=== PATIENT | female | born 1935 | race Caucasian/White ===

== ENCOUNTER → 2018-05-17 15:20 | Outpatient (CLI) | payer MEDICARE, SELFPAY ==
--- NOTE | 2018-05-17 | DI.RAD.S_ITS ---
PROCEDURE: XR CERVICAL SPINE 4V OR 5V INDICATIONS: CERVICALGIA TECHNIQUE: 5 views of the cervical spine acquired. COMPARISON: None. FINDINGS: Bones: No fractures or dislocations to the T4 level. Grade 1 anterolisthesis of C7 on T1 is seen. Degenerative endplate changes are noted at C4-5, C5-6 and C6-7 levels. There is suggestion of mild bilateral neural foramina narrowing at C5-6 and C6-7 levels seen on the oblique images. Soft tissues: No prevertebral soft tissue swelling. IMPRESSION: Grade 1 anterolisthesis of C7 on T1. No acute compression fracture. 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 Dictated by: Agustín Ibarra M.D. on 05/17/2018 at 16:01 Approved by: Agustín Ibarra M.D. on 05/17/2018 at 16:03
== END ==
PROVIDERS: Family Provider Internal Medicine; PCP Internal Medicine; Visit Provider Student in an Organized Health Care Education/Training Program
DX: M50.321 Other cervical disc degeneration at C4-C5 level (principal); M43.12 Spondylolisthesis, cervical region
CPT/HCPCS: 72050

== ENCOUNTER → 2018-08-12 12:03 | Outpatient (CLI) | payer MEDICARE, SELFPAY ==
[2018-08-12 12:51] LABS: Add Manual Diff / Slide Review NO; Basophils Percent Auto 0.4 % (0-2); Eosinophils Percent Auto 1.9 % (2-4); Hematocrit 39.9 % (36-46); Hemoglobin 13.4 g/dL (12.0-16.0); Lymphocytes Percent Auto 24.1 % (25-40); Mean Corpuscular HGB Conc 33.5 % (30-36); Mean Corpuscular Hemoglobin 30.5 PG (26-34); Mean Corpuscular Volume 91.2 fL (80-100); Monocytes Percent Auto 6.6 % (3-14); Neutrophils Absolute Auto 6400 /uL (3000-5900); Platelet Count 251 X10^3/uL (150-400); Red Blood Cell Count 4.38 X10^6/uL (4.0-5.2); Red Cell Distribution Width 12.8 % (11.6-14.8); White Blood Cell Count 9.6 X10^3/uL (4.5-11.0)
[2018-08-12 13:25] LABS: Alanine Aminotransferase 31 IU/L (9-52); Albumin 4.3 g/dL (3.5-5.0); Albumin Globulin Ratio 1.7 (1.0-2.8); Alkaline Phosphatase 92 U/L (38-126); Aspartate Aminotransferase 25 IU/L (14-36); BUN Creatinine Ratio 27.1 (6-22); Bilirubin Total 0.3 mg/dL (0.2-1.3); Blood Urea Nitrogen 19 mg/dL (7-17); Calcium 9.9 mg/dL (8.4-10.2); Carbon Dioxide 35 mmol/L (22-32); Chloride 94 mmol/L (98-107); Estimated Glomerular Filt Rate > 60.0 mL/min (>60); Globulin 2.6 g/dL (1.7-4.1); Glucose 92 mg/dL (80-110); HEMOLYSIS < 15 (0-50); Potassium 4.2 mmol/L (3.4-5.1); Sodium 139 mmol/L (137-145); Total Protein 6.9 g/dL (6.3-8.2)
[2018-08-12 13:42] LABS: Free T4, Direct Thyroxine 1.29 ng/dL (0.78-2.19)
[2018-08-12 13:56] LABS: Thyroid Stimulating Hormone 1.26 uIU/mL (0.47-4.68)
== END ==
PROVIDERS: PCP Internal Medicine; Visit Provider Internal Medicine
DX: I48.0 Paroxysmal atrial fibrillation (principal)
CPT/HCPCS: 36415; 80053; 83735; 84439; 84443; 85025

== ENCOUNTER 2018-11-26 19:18 | Emergency (ER) | payer MEDICARE, SELFPAY ==
[2018-11-26 19:24] VITALS: BP 147/78; PULSE 61; RESP 18; TEMP 36.7; O2SAT 98
[2018-11-26 21:12] LABS: Add Manual Diff / Slide Review NO; Basophils Absolute Auto 100 /uL (0-100); Basophils Percent Auto 0.7 % (0-2); Eosinophils Absolute Auto 200 /uL (0-450); Eosinophils Percent Auto 1.1 % (2-4); Hematocrit 41.2 % (36-46); Hemoglobin 13.7 g/dL (12.0-16.0); Lymphocytes Absolute Auto 2400 /uL (1100-4500); Lymphocytes Percent Auto 15.9 % (25-40); Mean Corpuscular HGB Conc 33.1 % (30-36); Mean Corpuscular Hemoglobin 30.1 PG (26-34); Monocytes Absolute Auto 1300 /uL (0-900); Monocytes Percent Auto 8.5 % (3-14); Neutrophils Absolute Auto 11400 /uL (1500-7000); Neutrophils Percent Auto 73.8 % (50-75); Platelet Count 240 X10^3/uL (150-400); Red Blood Cell Count 4.53 X10^6/uL (4.0-5.2); Red Cell Distribution Width 13.5 % (11.6-14.8); White Blood Cell Count 15.4 X10^3/uL (4.5-11.0)
[2018-11-26 21:27] LABS: Alanine Aminotransferase 25 IU/L (9-52); Albumin 4.6 g/dL (3.5-5.0); Albumin Globulin Ratio 1.4 (1.0-2.8); Alkaline Phosphatase 95 U/L (38-126); Aspartate Aminotransferase 27 IU/L (14-36); BUN Creatinine Ratio 41.7 (6-22); Bilirubin Total 0.5 mg/dL (0.2-1.3); Blood Urea Nitrogen 25 mg/dL (7-17); Calcium 9.7 mg/dL (8.4-10.2); Carbon Dioxide 31 mmol/L (22-32); Chloride 94 mmol/L (98-107); Estimated Glomerular Filt Rate > 60.0 mL/min (>60); Globulin 3.3 g/dL (1.7-4.1); Glucose 106 mg/dL (80-110); HEMOLYSIS 16 (0-50); Lipase 118 U/L (23-300); Potassium 3.5 mmol/L (3.4-5.1); Sodium 135 mmol/L (137-145); Total Protein 7.9 g/dL (6.3-8.2)
[2018-11-26 21:41] LABS: Bacteria Urine None Seen; WBC Urine None Seen (0-5/HPF)
--- NOTE | 2018-11-26 21:53 | ED.ABDPAIN ---
HPI - Abdominal Pain General Chief Complaint: Abdominal Pain Stated Complaint: epigastric pain Time Seen by Provider: 11/26/18 21:53 Source: patient Mode of arrival: ambulatory Limitations: no limitations History of Present Illness HPI narrative: Patient is an 83-year-old female reports that earlier today she had a gradual onset of epigastric pain. She states that she has never had these symptoms before. Has not tried anything for the symptoms. Has no other associated symptoms. States that it did not seem to change with urination or bowel movements. Has not had any nausea or vomiting. Related Data Home Medications Medication Instructions Recorded Confirmed CHOLECALCIFEROL (VITAMIN D3) 400 unit PO QDAY #0 12/16/16 (Vitamin D3) [FLAXSEED OIL] Q DAY #0 12/16/16 [TUMERIC] Q DAY #0 12/16/16 aspirin 650 mg PO QDAY #0 12/16/16 calcium carbonate-vitamin D3 1 tab PO Q DAY #0 12/16/16 [Oyster Shell Calcium-Vit D3] cyanocobalamin (vitamin B-12) 500 mcg PO QDAY #0 12/16/16 [Vitamin B-12] folic acid 1 mg PO QDAY #0 12/16/16 glucosamine sulfate-msm 1 tab EVERY OTHER DAY #0 03/13/17 metoprolol tartrate 25 mg PO Q DAY #0 09/15/17 Previous Rx's Medication Instructions Recorded ranitidine HCl [Zantac] 150 mg PO DAILY #30 tab 11/27/18 Allergies Allergy/AdvReac Type Severity Reaction Status Date / Time No Known Drug Allergies Allergy Verified 11/26/18 19:24 Review of Systems Constitutional Denies chills, Denies fever(s) and Denies headache(s) ENT Ears, Nose, Mouth, and Throat: Denies headache(s) Cardiovascular Denies chest pain, Denies chest pain with activity, Denies rapid heart rate, Denies leg edema, Denies palpitations and Denies dyspnea Respiratory Denies dyspnea Gastrointestinal Gastrointestinal: Reports abdominal pain, Denies change in stool character, Denies dyspepsia, Denies diarrhea, Denies nausea and Denies vomiting Genitourinary Denies dysuria Musculoskeletal Denies myalgias and Denies arthralgias Integumentary/Breasts Denies rash Neurologic Denies behavioral changes and Denies headache(s) Psychiatric Denies behavioral changes Endocrine Denies palpitations Hematologic/Lymphatic Denies easy bleeding and Denies easy bruising Allergic/Immunologic Denies urticaria PFSH Surgical History History of permanent cardiac pacemaker placement (Acute) Social History Smoking Status: Never smoker Social History Smoking Status: Never smoker Exam Initial Vital Signs Initial Vital Signs: Vital Signs Temperature 98.1 F 11/26/18 19:24 Pulse Rate 61 11/26/18 19:24 Respiratory Rate 18 11/26/18 19:24 Blood Pressure 147/78 H 11/26/18 19:24 Pulse Oximetry 98 11/26/18 19:24 Const General: cooperative, healthy appearing, comfortable, well developed, well groomed and No acute distress Orientation: alert, awake and oriented x3 Resp Effort & Inspection: normal respiratory effort Auscultation: clear to auscultation bilaterally Cardio Rate: regular rate Rhythm: regular rhythm Pulses: radial pulses present GI Inspection: non-distended Palpation: soft, No firm and tender (Some tenderness to palpation epigastric region no right upper quadrant tend) Skin Lesions: no lesions Rashes: no rashes Neuro General: alert, awake and oriented x3 Extrem General: normal to inspection and capillary refill normal Psych Appearance: grossly normal and well kempt Scores GCS Herman coma scale eye opening: Spontaneous Herman coma scale verbal response: Orientated [place] coma scale motor response: Obey commands Herman coma scale total score: 15 Course Orders Ordered: ED Orders 11/26/18 21:00 Complete Blood Count AUTO DIFF Stat Comprehensive Metabolic Panel Stat Lipase Stat Troponin I Stat 11/26/18 22:31 CT abdomen pelvis w con Stat Discontinued Medications Al Hydrox/Mg Hydrox/Simethicone 20 ml/ Lidocaine HCl 15 ml 0 ml PO NOW ONE Stop: 11/26/18 22:18 Last Admin: 11/26/18 23:03 Dose: 35 ml Vital Signs - 8 hr 11/27/18 00:33 Temperature 97.8 F Pulse Rate 66 Respiratory Rate 18 Blood Pressure [Right Arm] 121/71 Pulse Oximetry 95 MDM - Abdominal Pain Lab Data Attestation: I reviewed the patient's lab results. Result diagrams: 11/26/18 21:00 11/26/18 21:00 Lab Results 11/26/18 11/26/18 11/26/18 Range/Units 21:00 21:00 21:00 WBC 15.4 H (4.5-11.0) X10^3/uL RBC 4.53 (4.0-5.2) X10^6/uL Hgb 13.7 (12.0-16.0) g/dL Hct 41.2 (36-46) % MCV 91.0 (80-100) fL MCH 30.1 (26-34) PG MCHC 33.1 (30-36) % RDW 13.5 (11.6-14.8) % Plt Count 240 (150-400) X10^3/uL Neut % (Auto) 73.8 (50-75) % Lymph % (Auto) 15.9 L (25-40) % [place] % (Auto) 8.5 (3-14) % Eos % (Auto) 1.1 L (2-4) % Baso % (Auto) 0.7 (0-2) % Neut # (Auto) 95270 H (5762-1450) /uL Lymph # (Auto) 2400 (5943-0296) /uL [place] # (Auto) 1300 H (0-900) /uL Eos # (Auto) 200 (0-450) /uL Baso # (Auto) 100 (0-100) /uL Sodium 135 L (137-145) mmol/L Potassium 3.5 (3.4-5.1) mmol/L Chloride 94 L (98-107) mmol/L Carbon Dioxide 31 (22-32) mmol/L BUN 25 H (7-17) mg/dL Creatinine 0.60 (0.52-1.04) mg/dL Estimated GFR > 60.0 (>60) mL/min BUN/Creatinine Ratio 41.7 H (6-22) Glucose 106 (80-110) mg/dL Calcium 9.7 (8.4-10.2) mg/dL Total Bilirubin 0.5 (0.2-1.3) mg/dL AST 27 (14-36) IU/L ALT 25 (9-52) IU/L Alkaline Phosphatase 95 (38-126) U/L Troponin I < 0.012 (0.01-0.034) ng/mL Total Protein 7.9 (6.3-8.2) g/dL Albumin 4.6 (3.5-5.0) g/dL Globulin 3.3 (1.7-4.1) g/dL Albumin/Globulin Ratio 1.4 (1.0-2.8) Lipase 118 (23-300) U/L Urine Color Urine Appearance Urine pH (4.5-8.0) Ur Specific [place] (1.000-1.035) Urine Protein (Negative) Urine Glucose (UA) (Negative) g/dL Urine Ketones (NEGATIVE) Urine Occult Blood (Negative) Urine Nitrate (Negative) Urine Bilirubin (NEGATIVE) Urine Urobilinogen (0.2) E.U./dL Ur Leukocyte Esterase (NEGATIVE) Urine RBC (0-5/HPF) Urine WBC (0-5/HPF) Urine Bacteria (None) Ur Culture Indicated? 11/26/18 Range/Units Unknown WBC (4.5-11.0) X10^3/uL RBC (4.0-5.2) X10^6/uL Hgb (12.0-16.0) g/dL Hct (36-46) % MCV (80-100) fL MCH (26-34) PG MCHC (30-36) % RDW (11.6-14.8) % Plt Count (150-400) X10^3/uL Neut % (Auto) (50-75) % Lymph % (Auto) (25-40) % [place] % (Auto) (3-14) % Eos % (Auto) (2-4) % Baso % (Auto) (0-2) % Neut # (Auto) (7825-7101) /uL Lymph # (Auto) (6331-6744) /uL [place] # (Auto) (0-900) /uL Eos # (Auto) (0-450) /uL Baso # (Auto) (0-100) /uL Sodium (137-145) mmol/L Potassium (3.4-5.1) mmol/L Chloride (98-107) mmol/L Carbon Dioxide (22-32) mmol/L BUN (7-17) mg/dL Creatinine (0.52-1.04) mg/dL Estimated GFR (>60) mL/min BUN/Creatinine Ratio (6-22) Glucose (80-110) mg/dL Calcium (8.4-10.2) mg/dL Total Bilirubin (0.2-1.3) mg/dL AST (14-36) IU/L ALT (9-52) IU/L Alkaline Phosphatase (38-126) U/L Troponin I (0.01-0.034) ng/mL Total Protein (6.3-8.2) g/dL Albumin (3.5-5.0) g/dL Globulin (1.7-4.1) g/dL Albumin/Globulin Ratio (1.0-2.8) Lipase (23-300) U/L Urine Color Yellow Urine Appearance Clear Urine pH 6.5 (4.5-8.0) Ur Specific [place] 1.010 (1.000-1.035) Urine Protein Negative (Negative) Urine Glucose (UA) Negative (Negative) g/dL Urine Ketones Negative (NEGATIVE) Urine Occult Blood 1+ H (Negative) Urine Nitrate Negative (Negative) Urine Bilirubin Negative (NEGATIVE) Urine Urobilinogen 0.2 (0.2) E.U./dL Ur Leukocyte Esterase Negative (NEGATIVE) Urine RBC 0-1/hpf (0-5/HPF) Urine WBC None seen (0-5/HPF) Urine Bacteria None seen (None) Ur Culture Indicated? Cult not indicated Imaging Data CT scan - abdomen: Radiologist's impression: Moderate stool and gas throughout the colon. No free air or fluid. Hemangiomas involving the left lobe of the liver. Dilated common bile duct and pancreatic duct. Ampullary region mass is not excluded, not demonstrated. ECG Data Attestation: I personally reviewed and interpreted this ECG as follows: Prior ECG tracings: not available for review Interpretation: Sinus rhythm Left axis deviation Left bundle branch block Ventricular rate is 63 Normal QRS and QTC MDM Narrative Medical decision making narrative: Patient has a relatively benign abdominal exam. LFTs and lipase are unremarkable. CT scan of the abdomen shows no definite pathology. She does have leukocytosis however no signs of infection. She is afebrile. Her troponin was negative greater than 6 hr after the onset of her constant symptoms. Low suspicion for ACS. She was given a GI cocktail and she states this only minimally improved her symptoms. She does have the reports of a dilated common bile duct however no stones on the CT scan. She has no right upper quadrant tenderness. Has no elevation in her LFTs or lipase. Will start the patient on Zantac to see if this does not improve her symptoms. Informed her to contact her primary doctor on Thursday to discuss further evaluation and treatment. She was given return precautions. If she returns prior to her follow-up with primary doctor would recommend ordering a right upper quadrant ultrasound to further evaluate the dilated common bile duct. Discharge Plan Departure Patient Disposition: Home Clinical Impression: Abdominal pain Qualifiers: Abdominal location: epigastric Qualified Code(s): R10.13 - Epigastric pain Discharge Date/Time: 11/27/18 00:36 Interventions: ED Discharge Assessment Last Done: 11/27/18 00:36 Instructions: DI for Abdominal Pain-Adult Activity Restrictions/Additional Instructions: I recommend you start taking the Zantac like we discussed. Contact your primary doctor's office on Thursday for a follow-up. Return to the emergency department for any new or worsening symptoms Prescriptions: New ranitidine HCl [Zantac] 150 mg tablet 150 mg PO DAILY Qty: 30 RF: 0 No Action aspirin 325 MG tablet,delayed release (DR/EC) 650 mg PO QDAY Qty: 0 RF: 0 cyanocobalamin (vitamin B-12) [Vitamin B-12] 500 MCG tablet 500 mcg PO QDAY Qty: 0 RF: 0 folic acid 1 MG tablet 1 mg PO QDAY Qty: 0 RF: 0 calcium carbonate-vitamin D3 [Oyster Shell Calcium-Vit D3] 500 MG/200 IU tablet 1 tab PO Q DAY Qty: 0 RF: 0 [TUMERIC] Q DAY Qty: 0 RF: 0 CHOLECALCIFEROL (VITAMIN D3) (Vitamin D3) 400 unit PO QDAY Qty: 0 RF: 0 [FLAXSEED OIL] Q DAY Qty: 0 RF: 0 glucosamine sulfate-msm 1 EACH capsule 1 tab EVERY OTHER DAY Qty: 0 RF: 0 metoprolol tartrate 25 MG tablet 25 mg PO Q DAY Qty: 0 RF: 0 Referrals: Dc Jeter MD [Primary Care Provider] -
[2018-11-26 22:23] LABS: Appearance Urine UA CLEAR; Bilirubin Urine UA NEGATIVE (NEGATIVE); Color Urine UA YELLOW; Glucose Urine UA NEGATIVE (Negative); Ketones Urine UA NEGATIVE (NEGATIVE); Leukocyte Esterase Urine UA NEGATIVE (NEGATIVE); Nitrite Urine UA NEGATIVE (Negative); Occult Blood Urine UA 1+ (Negative); Protein Urine UA NEGATIVE (Negative); Urobilinogen Urine UA 0.2 E.U./dL (0.2); pH Urine UA 6.5 (4.5-8.0)
[2018-11-26 22:24] LABS: Culture Indicated Urine Cult Not Indicated; RBC Urine 0-1/HPF (0-5/HPF)
--- NOTE | 2018-11-26 22:31 | DI.CT.S_ITS ---
PROCEDURE: CT ABDOMEN PELVIS W CON INDICATIONS: An 83 year old woman with epigastric abdominal pain TECHNIQUE: After the administration of intravenous contrast, 5 mm thick sections acquired from the diaphragm to the symphysis. 5 mm coronal and sagittal reformats were acquired. For radiation dose reduction, the following was used: automated exposure control, adjustment of mA and/or kV according to patient size. COMPARISON: None. FINDINGS: Image quality: Excellent. ABDOMEN: Lung bases: Bibasilar atelectasis/scars. Heart size is normal. There is a small hiatal hernia. Solid organs: Liver is normal in size and enhancement. There are a couple of hypodense masses in left hepatic lobe measuring 1.7 cm and 1.9 cm, respectively. Both demonstrate peripheral nodular enhancement consistent with hemangiomas. Gallbladder is normal. Biliary system is dilated. Common bile duct measures 10 mm. No obstructing stones or masses identified. Pancreas enhances normally. Spleen is normal in size and enhancement. No adrenal nodules. Kidneys demonstrate normal size and enhancement, without hydronephrosis. Peritoneum and bowel: Stomach is semicontracted. Bowel loops demonstrate normal wall thickness and caliber. A moderate amount of stool in colon. No free fluid or air. Nodes and vessels: No retroperitoneal or mesenteric adenopathy by size criteria. Aorta and inferior vena cava are normal in size. Miscellaneous: No ventral hernias. Scoliosis and degenerative changes in lumbar spine. PELVIS: Genitourinary: Bladder wall thickness is normal. Miscellaneous: No inguinal hernias or adenopathy. Bones: No suspicious bony lesions. No vertebral body compression fractures. IMPRESSION: 1. A small hiatal hernia. 2. Bibasilar atelectasis. 3. 2 hepatic hemangiomas in the left hepatic lobe. 4. There is biliary dilation. No obstructive stones or masses identified. Please correlate with serum bilirubin. 5. A moderate amount of stool in colon. No significant discrepancy with the steward/stewardess night radiology preliminary report. Dictated by: Melanie Juárez M.D. on 11/27/2018 at 7:27 Approved by: Melanie Juárez M.D. on 11/27/2018 at 7:36
[2018-11-26] MEDS: MAG HYDROX/ALUMINUM/SIMETH SUS 20 ML, LIDOCAINE VISCOUS 2% 15 ML PO (23:03)
[2018-11-27 00:23] LABS: Troponin I < 0.012 ng/mL (0.01-0.034)
[2018-11-27 00:33] VITALS: BP 121/71; PULSE 66; RESP 18; TEMP 36.6; O2SAT 95
== END 2018-11-27 00:36 | disposition home or self-care (01) ==
PROVIDERS: Emergency Provider Emergency Medicine; Family Provider Internal Medicine; PCP Internal Medicine
DX: R10.13 Epigastric pain (principal)
CPT/HCPCS: 74177; 80053; 81001; 83690; 84484; 85025; 93005; 99283; 99285; Q9967

== ENCOUNTER 2018-11-29 10:09 | Emergency (ER) | payer MEDICARE, SELFPAY ==
[2018-11-29 10:25] VITALS: BP 124/73; PULSE 64; RESP 14; TEMP 36.6; O2SAT 96
--- NOTE | 2018-11-29 11:28 | ED.ABDPAIN ---
HPI - Abdominal Pain General Chief Complaint: Abdominal Pain Stated Complaint: abdomen pain x4 days Time Seen by Provider: 11/29/18 11:05 Source: patient Mode of arrival: ambulatory Limitations: no limitations History of Present Illness HPI narrative: patient is an 83-year-old female presenting with epigastric pain. It started 4 days ago she was seen and evaluated here at that time where she had blood work and a CT noted to have slight leukocytosis and discharged home instructed to follow up with her PCP. She called her PCP office today they instructed her to come back to the ER at to complete the workup. She says the pain has not gone away it hurts every time she takes a breath is in her epigastric reason. She took Tylenol last night it seemed to help. It is not any worse today she has no nausea or vomiting. No shortness of breath. No real chest pain. Related Data Home Medications Medication Instructions Recorded Confirmed CHOLECALCIFEROL (VITAMIN D3) 400 unit PO QDAY #0 12/16/16 (Vitamin D3) [FLAXSEED OIL] Q DAY #0 12/16/16 [TUMERIC] Q DAY #0 12/16/16 aspirin 650 mg PO QDAY #0 12/16/16 calcium carbonate-vitamin D3 1 tab PO Q DAY #0 12/16/16 [Oyster Shell Calcium-Vit D3] cyanocobalamin (vitamin B-12) 500 mcg PO QDAY #0 12/16/16 [Vitamin B-12] folic acid 1 mg PO QDAY #0 12/16/16 glucosamine sulfate-msm 1 tab EVERY OTHER DAY #0 03/13/17 metoprolol tartrate 25 mg PO BID #0 09/15/17 11/29/18 chlorthalidone 25 mg PO DAILY 11/29/18 11/29/18 gabapentin 11/29/18 rosuvastatin 10 mg PO DAILY 11/29/18 11/29/18 Previous Rx's Medication Instructions Recorded ranitidine HCl [Zantac] 150 mg PO DAILY #30 tab 11/27/18 Allergies Allergy/AdvReac Type Severity Reaction Status Date / Time No Known Drug Allergies Allergy Verified 11/29/18 10:29 Review of Systems Review of Systems ROS Unobtainable: All systems reviewed & are unremarkable except as noted in HPI and below Cardiovascular Reports chest pain (Epigastric), Denies syncope, Denies rapid heart rate, Denies irregular heart rhythm, Denies lightheadedness, Denies dyspnea and Denies dyspnea on exertion Respiratory Denies cough, Denies dyspnea, Denies dyspnea on exertion and Denies wheezing Gastrointestinal Gastrointestinal: Denies abdominal pain, Denies change in bowel habits, Denies diarrhea, Denies nausea and Denies vomiting Genitourinary Denies hematuria, Denies flank pain, Denies urinary incontinence and Denies urinary urgency Musculoskeletal Denies back pain, Denies muscle weakness, Denies numbness and Denies tingling Integumentary/Breasts Denies pruritus, Denies erythema, Denies rash and Denies wounds Neurologic Denies syncope, Denies numbness and Denies tingling Allergic/Immunologic Denies wheezing [facility] Medical History Hyperlipidemia (Acute) Hypertension (Acute) Surgical History History of permanent cardiac pacemaker placement (Acute) Social History Smoking Status: Never smoker Social History Smoking Status: Never smoker Exam Initial Vital Signs Initial Vital Signs: Vital Signs Temperature 98 F 11/29/18 10:25 Pulse Rate 64 11/29/18 10:25 Respiratory Rate 14 11/29/18 10:25 Blood Pressure 124/73 11/29/18 10:25 Pulse Oximetry 96 11/29/18 10:25 GENERAL: Very pleasant nice elderly female no acute distress HEENT: Head atraumatic,EOMI, pupils reactive, face symmetric, moist mucous membranes CARDIOVASCULAR: Regular rate and rhythm without murmurs, rubs or gallops. RESPIRATORY: Breath sounds equal bilaterally, no wheezes rales or rhonchi. ABDOMEN: Soft, epigastric tenderness no guarding no rebound mild pain to palpation no other pain. Normoactive bowel sounds all 4 quadrants. No guarding or rebound. EXTREMITIES: Normal range of motion, no clubbing or edema. Neurovascularly intact NEUROLOGICAL: Alert and oriented x4.Normal gait and speech. SKIN: Warm, dry, no laceration, no petechiae, no rashes or lesions. Scores HEART Score Heart Score history: Slightly Suspicious Heart Score EKG: Normal Heart Score Age: > or = 65 years old Heart Score risk factors: 1-2 risk factors Heart Score troponin: < or = to normal limit Heart Score Total: 3 Course Orders Ordered: ED Orders 11/29/18 11:27 XR chest 1V Stat EKG-12 Lead Stat 11/29/18 12:05 Complete Blood Count AUTO DIFF Stat Comprehensive Metabolic Panel Stat Lipase Stat Troponin & CK Cardiac Panel Stat Vital Signs - 8 hr 11/29/18 10:25 11/29/18 11:59 11/29/18 12:45 Temperature 98 F Pulse Rate 64 61 60 Respiratory Rate 14 17 16 Blood Pressure 124/73 Blood Pressure [Left Arm] 120/57 L 120/57 L Pulse Oximetry 96 98 97 MDM - Abdominal Pain Lab Data Attestation: I reviewed the patient's lab results. Result diagrams: 11/29/18 12:05 11/29/18 12:05 Lab Results 11/29/18 11/29/18 Range/Units 12:05 12:05 WBC 13.2 H (4.5-11.0) X10^3/uL RBC 4.39 (4.0-5.2) X10^6/uL Hgb 13.3 (12.0-16.0) g/dL Hct 39.6 (36-46) % MCV 90.2 (80-100) fL MCH 30.2 (26-34) PG MCHC 33.5 (30-36) % RDW 13.5 (11.6-14.8) % Plt Count 212 (150-400) X10^3/uL Neut % (Auto) 81.3 H (50-75) % Lymph % (Auto) 11.5 L (25-40) % [place] % (Auto) 5.7 (3-14) % Eos % (Auto) 0.9 L (2-4) % Baso % (Auto) 0.6 (0-2) % Neut # (Auto) 41346 H (5378-1614) /uL Lymph # (Auto) 1500 (5621-8021) /uL [place] # (Auto) 800 (0-900) /uL Eos # (Auto) 100 (0-450) /uL Baso # (Auto) 100 (0-100) /uL Sodium 134 L (137-145) mmol/L Potassium 3.2 L (3.4-5.1) mmol/L Chloride 93 L (98-107) mmol/L Carbon Dioxide 33 H (22-32) mmol/L BUN 16 (7-17) mg/dL Creatinine 0.70 (0.52-1.04) mg/dL Estimated GFR > 60.0 (>60) mL/min BUN/Creatinine Ratio 22.9 H (6-22) Glucose 91 (80-110) mg/dL Calcium 9.5 (8.4-10.2) mg/dL Total Bilirubin 0.5 (0.2-1.3) mg/dL AST 24 (14-36) IU/L ALT 22 (9-52) IU/L Alkaline Phosphatase 82 (38-126) U/L Total Creatine Kinase 42 (30-135) U/L CK-MB (CK-2) TNP CK-MB (CK-2) Rel Index TNP Troponin I < 0.012 (0.01-0.034) ng/mL Total Protein 7.3 (6.3-8.2) g/dL Albumin 4.2 (3.5-5.0) g/dL Globulin 3.1 (1.7-4.1) g/dL Albumin/Globulin Ratio 1.4 (1.0-2.8) Lipase 80 (23-300) U/L Imaging Data Chest x-ray: Radiologist's impression: PROCEDURE: XR CHEST 1V INDICATIONS: chest pain TECHNIQUE: One view of the chest was acquired. COMPARISON: [facility], CHEST 2 VIEW, 12/04/2017, 11:17. FINDINGS: Surgical changes and devices: Left chest wall cardiac device leads are seen in the region of right atrium and right ventricle. Lungs and pleura: Lungs are clear. No pleural effusions or pneumothorax. Emphysematous changes are noted in bilateral lung [place]. Mediastinum: Mediastinal contours appear normal. Heart size is enlarged. Bones and chest wall: No suspicious bony lesions. Overlying soft tissues appear unremarkable. IMPRESSION: COPD and cardiomegaly. No acute pulmonary pathology. Dictated by: Agustín Ibarra M.D. on 11/29/2018 at 12:14 ECG Data Attestation: I personally reviewed and interpreted this ECG as follows: Prior ECG tracings: available for review Interpretation: Normal sinus rhythm, wide complex, paced rhythm similar to previous EKG rate 60 MDM Narrative Medical decision making narrative: The patients symptoms are not consistent with any sort of cardiac disease, likely a pleurisy. Recommend follow up with her PCP. Troponins are negative x-ray negative she had abdominal CT a few days ago. Leukocytosis is improving. Overall no new complaints and is stable. At this time I do not believe she has a PE causing her symptoms. She is not short of breath or tachycardic as it hurts to the same place every time she breathes. Discharge Plan Departure Patient Disposition: Home Clinical Impression: Atypical chest pain Discharge Date/Time: 11/29/18 13:17 Interventions: ED Discharge Assessment Last Done: 11/29/18 13:16 Instructions: DI for Atypical Chest Pain Activity Restrictions/Additional Instructions: *You have been diagnosed with atypical chest pain. *What to do: At this time blood work is improving chest x-ray does not show any abnormality. Likely a pleurisy *Continue to take medications as directed *Follow up with your primary care provider in 2-3 days *Return to ER if you should have worsening chest pain abdominal pain or any new, worsening or concerning symptoms Prescriptions: No Action aspirin 325 MG tablet,delayed release (DR/EC) 650 mg PO QDAY Qty: 0 RF: 0 cyanocobalamin (vitamin B-12) [Vitamin B-12] 500 MCG tablet 500 mcg PO QDAY Qty: 0 RF: 0 folic acid 1 MG tablet 1 mg PO QDAY Qty: 0 RF: 0 calcium carbonate-vitamin D3 [Oyster Shell Calcium-Vit D3] 500 MG/200 IU tablet 1 tab PO Q DAY Qty: 0 RF: 0 [TUMERIC] Q DAY Qty: 0 RF: 0 CHOLECALCIFEROL (VITAMIN D3) (Vitamin D3) 400 unit PO QDAY Qty: 0 RF: 0 [FLAXSEED OIL] Q DAY Qty: 0 RF: 0 glucosamine sulfate-msm 1 EACH capsule 1 tab EVERY OTHER DAY Qty: 0 RF: 0 metoprolol tartrate 25 MG tablet 25 mg PO BID Qty: 0 RF: 0 ranitidine HCl [Zantac] 150 mg tablet 150 mg PO DAILY Qty: 30 RF: 0 chlorthalidone 25 mg tablet 25 mg PO DAILY RF: 0 gabapentin 100 mg capsule RF: 0 rosuvastatin 10 mg tablet 10 mg PO DAILY RF: 0 Referrals: Dc Jeter MD [Primary Care Provider] -
[2018-11-29 11:59] VITALS: BP 120/57; PULSE 61; RESP 17; O2SAT 98
[2018-11-29 12:17] LABS: Add Manual Diff / Slide Review NO; Basophils Absolute Auto 100 /uL (0-100); Basophils Percent Auto 0.6 % (0-2); Eosinophils Absolute Auto 100 /uL (0-450); Eosinophils Percent Auto 0.9 % (2-4); Hematocrit 39.6 % (36-46); Hemoglobin 13.3 g/dL (12.0-16.0); Lymphocytes Absolute Auto 1500 /uL (1100-4500); Lymphocytes Percent Auto 11.5 % (25-40); Mean Corpuscular HGB Conc 33.5 % (30-36); Mean Corpuscular Hemoglobin 30.2 PG (26-34); Mean Corpuscular Volume 90.2 fL (80-100); Monocytes Absolute Auto 800 /uL (0-900); Monocytes Percent Auto 5.7 % (3-14); Neutrophils Absolute Auto 10700 /uL (1500-7000); Neutrophils Percent Auto 81.3 % (50-75); Platelet Count 212 X10^3/uL (150-400); Red Blood Cell Count 4.39 X10^6/uL (4.0-5.2); Red Cell Distribution Width 13.5 % (11.6-14.8); White Blood Cell Count 13.2 X10^3/uL (4.5-11.0)
[2018-11-29 12:27] LABS: Alanine Aminotransferase 22 IU/L (9-52); Albumin 4.2 g/dL (3.5-5.0); Albumin Globulin Ratio 1.4 (1.0-2.8); Alkaline Phosphatase 82 U/L (38-126); Aspartate Aminotransferase 24 IU/L (14-36); BUN Creatinine Ratio 22.9 (6-22); Bilirubin Total 0.5 mg/dL (0.2-1.3); Blood Urea Nitrogen 16 mg/dL (7-17); Calcium 9.5 mg/dL (8.4-10.2); Carbon Dioxide 33 mmol/L (22-32); Chloride 93 mmol/L (98-107); Creatine Kinase 42 U/L (30-135); Estimated Glomerular Filt Rate > 60.0 mL/min (>60); Globulin 3.1 g/dL (1.7-4.1); Glucose 91 mg/dL (80-110); HEMOLYSIS < 15 (0-50); Lipase 80 U/L (23-300); Potassium 3.2 mmol/L (3.4-5.1); Sodium 134 mmol/L (137-145); Total Protein 7.3 g/dL (6.3-8.2)
[2018-11-29 12:38] LABS: Troponin I < 0.012 ng/mL (0.01-0.034)
[2018-11-29 12:45] VITALS: BP 120/57; PULSE 60; RESP 16; O2SAT 97
== END 2018-11-29 13:17 | disposition home or self-care (01) ==
PROVIDERS: Emergency Provider Emergency Medicine; Family Provider Internal Medicine; PCP Internal Medicine
DX: R07.89 Other chest pain (principal)
CPT/HCPCS: 36591; 71045; 80053; 82550; 83690; 84484; 85025; 93005; 99283; 99285

== ENCOUNTER → 2019-01-27 08:33 | Outpatient (CLI) | payer MEDICARE, SELFPAY ==
--- NOTE | 2019-01-27 | DI.RAD.S_ITS ---
PROCEDURE: XR CHEST 2V INDICATIONS: Chest pain, unspecified type TECHNIQUE: 2 views of the chest were acquired. COMPARISON: [facility], CR, XR CHEST 1V, 11/29/2018, 11:43. FINDINGS: Surgical changes and devices: Pacemaker. Lungs and pleura: Chronic interstitial changes are present. No pleural effusions or pneumothorax. Mediastinum: Mediastinal contours are normal. Heart size is normal. Bones and chest wall: No suspicious bony abnormalities. Soft tissues appear unremarkable. IMPRESSION: No acute pulmonary process. Dictated by: Lizett Byers M.D. on 01/27/2019 at 11:04 Approved by: Lizett Byers M.D. on 01/27/2019 at 11:26
== END ==
PROVIDERS: PCP Internal Medicine; Visit Provider Internal Medicine
DX: R07.9 Chest pain, unspecified (principal)
CPT/HCPCS: 71046

== ENCOUNTER → 2019-10-06 10:01 | Outpatient (CLI) | payer MEDICARE, SELFPAY | PROVIDERS: PCP Internal Medicine; Visit Provider Internal Medicine | DX: M85.852 Other specified disorders of bone density and structure, left thigh (principal); Z78.0 Asymptomatic menopausal state; Z85.3 Personal history of malignant neoplasm of breast; Z82.62 Family history of osteoporosis | CPT/HCPCS: 77080 ==

== ENCOUNTER → 2020-10-01 19:29 | Outpatient (ROUT) | payer MEDICARE, SELFPAY ==
[2020-10-01 20:29] LABS: Aspartate Aminotransferase 32 IU/L (14-36); BUN Creatinine Ratio 22.5 (6-22); Blood Urea Nitrogen 16 mg/dL (7-17); Calcium 9.7 mg/dL (8.4-10.2); Carbon Dioxide 38 mmol/L (22-32); Chloride 93 mmol/L (98-107); Cholesterol 209 mg/dL (140-199); Estimated Glomerular Filt Rate > 60.0 mL/min (>60); Glucose 85 mg/dL (80-110); HDL Cholesterol 76 mg/dL (40-60); HEMOLYSIS < 15 (0-50); LDL Cholesterol Calculated 107 mg/dL (<100); Potassium 3.9 mmol/L (3.4-5.1); Sodium 134 mmol/L (137-145); Triglycerides 132 mg/dL (35-150)
== END ==
PROVIDERS: PCP Internal Medicine; Visit Provider Internal Medicine
DX: I10 Essential (primary) hypertension (principal); E78.2 Mixed hyperlipidemia
CPT/HCPCS: 80048; 80061; 84450

== ENCOUNTER → 2022-11-13 15:20 | Outpatient (CLI) | payer MEDICARE, SELFPAY ==
[2022-11-13 15:40] LABS: Hematocrit 39.3 % (36-46); Hemoglobin 13.1 g/dL (12.0-16.0); Mean Corpuscular HGB Conc 33.3 % (30-36); Platelet Count 257 X10^3/uL (150-400); Red Blood Cell Count 4.36 X10^6/uL (4.0-5.2); Red Cell Distribution Width 13.2 % (11.6-14.8); White Blood Cell Count 9.9 X10^3/uL (4.5-11.0)
[2022-11-13 15:56] LABS: Alanine Aminotransferase 20 IU/L (<35); Albumin 4.4 g/dL (3.5-5.0); Albumin Globulin Ratio 1.3 (1.0-2.8); Alkaline Phosphatase 100 U/L (38-126); Aspartate Aminotransferase 29 IU/L (14-36); BUN Creatinine Ratio 25.7 (6-22); Bilirubin Total 0.5 mg/dL (0.2-1.3); Blood Urea Nitrogen 18 mg/dL (7-17); Calcium 9.1 mg/dL (8.4-10.2); Carbon Dioxide 33 mmol/L (22-32); Chloride 91 mmol/L (98-107); Cholesterol 217 mg/dL (140-199); Estimated Glomerular Filt Rate > 60 mL/min (>60); Globulin 3.4 g/dL (1.7-4.1); Glucose 109 mg/dL (80-110); HDL Cholesterol 75 mg/dL (40-60); HEMOLYSIS < 15 (0-50); LDL Cholesterol Calculated 123 mg/dL (<100); Potassium 3.9 mmol/L (3.4-5.1); Sodium 132 mmol/L (137-145); Total Protein 7.8 g/dL (6.3-8.2); Triglycerides 96 mg/dL (35-150)
[2022-11-13 16:38] LABS: TSH w/ Reflex to FT4 0.75 uIU/mL (0.47-4.68)
[2022-11-13 16:45] LABS: Vitamin B12 314 pg/mL (239-931)
== END ==
PROVIDERS: PCP Internal Medicine; Referring Provider Internal Medicine; Visit Provider Internal Medicine
DX: E78.2 Mixed hyperlipidemia (principal); I10 Essential (primary) hypertension; I48.0 Paroxysmal atrial fibrillation; E53.8 Deficiency of other specified B group vitamins
CPT/HCPCS: 36415; 80053; 80061; 82607; 84443; 85027

== ENCOUNTER → 2023-12-01 10:34 | Outpatient (CLI) | payer MEDICARE, SELFPAY ==
[2023-12-01 11:44] LABS: Hematocrit 37.5 % (36-46); Hemoglobin 12.6 g/dL (12.0-16.0); Mean Corpuscular HGB Conc 33.7 % (30-36); Mean Corpuscular Hemoglobin 30.7 PG (26-34); Mean Corpuscular Volume 91.1 fL (80-100); Platelet Count 251 X10^3/uL (150-400); Red Blood Cell Count 4.12 X10^6/uL (4.0-5.2); Red Cell Distribution Width 14.1 % (11.6-14.8); White Blood Cell Count 10.8 X10^3/uL (4.5-11.0)
[2023-12-01 12:06] LABS: Alanine Aminotransferase 18 IU/L (<35); Albumin 4.3 g/dL (3.5-5.0); Albumin Globulin Ratio 1.3 (1.0-2.8); Alkaline Phosphatase 97 U/L (38-126); Aspartate Aminotransferase 32 IU/L (14-36); BUN Creatinine Ratio 22.6 (6-22); Bilirubin Total 0.7 mg/dL (0.2-1.3); Blood Urea Nitrogen 19 mg/dL (7-17); Calcium 10.1 mg/dL (8.4-10.2); Carbon Dioxide 32 mmol/L (22-32); Chloride 97 mmol/L (98-107); Cholesterol 221 mg/dL (140-199); Estimated Glomerular Filt Rate > 60 mL/min (>60); Globulin 3.2 g/dL (1.7-4.1); Glucose 101 mg/dL (80-110); HDL Cholesterol 79 mg/dL (40-60); HEMOLYSIS < 15 (0-50); LDL Cholesterol Calculated 114 mg/dL (<100); Potassium 3.9 mmol/L (3.4-5.1); Sodium 136 mmol/L (137-145); Total Protein 7.5 g/dL (6.3-8.2); Triglycerides 138 mg/dL (35-150)
[2023-12-01 12:27] LABS: TSH w/ Reflex to FT4 1.08 uIU/mL (0.47-4.68)
[2023-12-01 12:56] LABS: Vitamin B12 > 1000 pg/mL (239-931)
== END ==
PROVIDERS: PCP Internal Medicine; Referring Provider Internal Medicine; Visit Provider Internal Medicine
DX: I48.0 Paroxysmal atrial fibrillation (principal); E78.2 Mixed hyperlipidemia; Z85.3 Personal history of malignant neoplasm of breast; E53.8 Deficiency of other specified B group vitamins
CPT/HCPCS: 36415; 80053; 80061; 82607; 84443; 85027